=== PATIENT | male | born 1965 | race Caucasian/White ===

== ENCOUNTER → 2025-03-06 10:56 | Outpatient (REF) | payer OTHER, SELFPAY | LOC: EMG 10:56 | PROVIDERS: ATTENDING PHYSICIAN Orthopaedic Surgery; FAMILY PHYSICIAN Family Medicine | DX: R20.0 Anesthesia of skin (principal) | CPT/HCPCS: 95886; 95911 ==

== ENCOUNTER → 2025-03-27 10:26 | Outpatient (REF) | payer OTHER, SELFPAY | LOC: PAVMRI 10:26 | PROVIDERS: ATTENDING PHYSICIAN Psychiatry & Neurology Neurology; REFERRING PHYSICIAN Orthopaedic Surgery | DX: M54.12 Radiculopathy, cervical region (principal); M54.16 Radiculopathy, lumbar region | CPT/HCPCS: 72156; 72158; A9575 ==